=== PATIENT | male | born 1955 | race Caucasian/White ===

== ENCOUNTER 2023-08-08 08:30 | Outpatient (RCR) | payer BC, SELFPAY ==
--- NOTE | 2023-06-30 15:56 | ONC.NURNOTE ---
Dx: Prostate Cancer
--- NOTE | 2023-07-01 13:59 | URNOTE ---
Received request for prior auth for Mary ([id number]). Per Imani at [facility], , prior auth is not required. call ref #[id number]
[2023-07-11 15:17] VITALS: BP 140/83; PULSE 61; RESP 16; TEMP 35.9; O2SAT 95
[2023-07-11] MEDS: LEUPROLIDE ACETATE 7.5 MG (SQ) SYRINGE SUBCUT (15:31)
[2023-08-08 09:06] VITALS: BP 116/72; PULSE 66; RESP 16; TEMP 36.5; O2SAT 94
[2023-08-08] MEDS: LEUPROLIDE ACETATE 22.5 MG (SQ) SYRINGE SUBCUT (09:38)
== END 2024-01-07 23:59 | disposition home or self-care (01) ==
LOC: CCIC 08:30
PROVIDERS: PCP Internal Medicine Nephrology; Referring Provider Internal Medicine Nephrology; Visit Provider Internal Medicine
DX: C61 Malignant neoplasm of prostate (principal)
CPT/HCPCS: 96401; J9217